=== PATIENT | male | born 1955 | race Caucasian/White ===

== ENCOUNTER 2018-05-23 05:22 | Emergency (ER) | payer OTHER ==
[~2018-05-23] VITALS: Ht 175.3 cm; Wt 57.6 kg
[2018-05-23] MEDS ORDERED: FOLIC ACID1 MG PO (05:42)
[2018-05-23] MEDS ORDERED: MAGNESIUM OXID420 MG PO (05:42)
[2018-05-23] MEDS ORDERED: NICOTINE TRANSD21 M1 (05:43)
[2018-05-23] MEDS ORDERED: THERATRUM COMP1 EAC3 PO (05:43)
[2018-05-23] MEDS ORDERED: POTASSIUM20 PO (05:44)
[2018-05-23] MEDS ORDERED: AMLODIPINE BESY10 MG PO (05:44)
[2018-05-23 05:47] LABS: HEMATOCRIT 38.2 % (42.0-52.0); HEMOGLOBIN 13.6 gm/dL (14.0-18.0); MCH 31.9 pg (26.0-34.0); MCHC 35.6 g/dL (28.0-37.0); MCV 89.8 fL (80.0-100.0); PLATELET COUNT 271 thou/uL (150-400); RBC 4.26 mil/uL (4.50-6.00); RDW 13.7 % (10.5-14.5); WBC 6.9 thou/uL (4.0-11.0)
[2018-05-23 05:51] LABS: CALCIUM 8.5 mg/dL (8.5-10.1); CREATININE 0.8 mg/dL (0.7-1.3); POTASSIUM 3.3 mmol/L (3.5-5.1)
[2018-05-23] MEDS ORDERED: LOPERAMIDE 2 MG2 M1 PO (06:00)
[2018-05-23] MEDS ORDERED: ZOFRAN ODT4 MG PO (06:00)
[2018-05-23 06:41] LABS: ABSOLUTE NEUTROPHILS 3.4 thou/uL (1.4-8.2); ATYPICAL LYMPHS 3 %
[2018-05-23 07:34] VITALS: BP 113/74
== END 2018-05-23 07:36 ==
LOC: ER 05:22
PROVIDERS: Emergency Medicine
DX: R19.7 Diarrhea, unspecified (principal); R11.0 Nausea